=== PATIENT | male | born 1945 | race Caucasian/White ===

== ENCOUNTER 2022-06-28 15:45 | Inpatient (IN) | payer MEDICARE, OTHER ==
[~2022-06-28] VITALS: Ht 172.7 cm; Wt 57.6 kg
[2022-06-28] MEDS ORDERED: MULT-594 PO (16:02)
[2022-06-28] MEDS ORDERED: THIA100T74 PO (16:02)
[2022-06-28] MEDS ORDERED: MELA3TAB41 PO (16:02)
[2022-06-28] MEDS ORDERED: IBUP-1955 PO (16:02)
[2022-06-28] MEDS ORDERED: TRAZ-182 PO (16:02)
[2022-06-28] MEDS ORDERED: FOLI1TAB94 PO (16:02)
--- NOTE | 2022-06-28 16:06 | NUR ---
PT IS IN ROOM #2A. DR KAPADIA EVALUATED THE PT.
[2022-06-28 16:36] LABS: HEMATOCRIT 39.7 % (36.7-47.1); MEAN CORPUSCULAR HEMOGLOBIN 29.7 uug (23.8-33.4); MEAN CORPUSCULAR VOLUME 90.4 fL (73.0-96.2); PLATELET COUNT (AUTO) 385 K/uL (152-348)
[2022-06-28 16:42] LABS: *BILIRUBIN,URIN NEGATIVE (NEGATIVE); *CLARITY,URINE CLEAR (CLEAR); *COLOR,URINE YELLOW (YELLOW); *KETONES,URINE NEGATIVE (NEGATIVE); *UROBILINOGEN,URINE 0.2 E.U./dl (NORMAL); LEUKOCYTE ESTERASE ,URINE NEGATIVE (NEGATIVE); NITRITE, URINE NEGATIVE (NEGATIVE); PH,URINE 5.5 (5.0-8.0); UGLUCOSE NEGATIVE (NEGATIVE)
[2022-06-28 16:43] LABS: *BLOOD, URINE NEGATIVE (NEGATIVE)
[2022-06-28 16:48] LABS: ALANINE AMINOTRANSFERASE 18 U/L (16-63); ALKALINE PHOSPHATASE 92 U/L (50-136); ASPARTATE AMINOTRANSFERASE 7 U/L (15-37); BILIRUBIN,DIRECT < 0.1 mg/dL (0.0-0.2); BILIRUBIN,TOTAL 0.2 mg/dL (0.2-1.0); CARBON DIOXIDE 27 mmol/L (21-32); CHLORIDE 100 mmol/L (98-107); CREATININE 0.8 mg/dL (0.6-1.3); GLUCOSE 105 mg/dL (74-106); POTASSIUM 4.3 mmol/L (3.5-5.1); TOTAL PROTEIN, SERUM 7.1 g/dL (6.4-8.2); UREA NITROGEN, BLOOD 23 mg/dL (7-18)
[2022-06-28 16:50] LABS: *AMPHETAMINE, URINE NEGATIVE (NEGATIVE); *CANNABINOID, URINE NEGATIVE (NEGATIVE); *COCCAINE, URINE NEGATIVE (NEGATIVE); *OPIATE, URINE NEGATIVE (NEGATIVE); *PHENCYCLIDINE SCREEN,URINE NEGATIVE (NEGATIVE)
[2022-06-28 16:56] LABS: ETHANOL < 3 MG/DL (0-0)
--- NOTE | 2022-06-28 17:56 | NUR ---
CRISIS OFFICE RENTAL CLERK RASHAAD WAS CALLED TO EVALUATE THE PT. SAUL IS 1 HOUR.
--- NOTE | 2022-06-28 18:50 | NUR ---
REPORT WAS GIVEN TO NUT SORTER RN.
--- NOTE | 2022-06-28 18:55 | NUR ---
Recieved report from Jaydon NGUYEN.
--- NOTE | 2022-06-28 23:15 | NUR ---
Report given to Marbella RN. Patient given room/bed 141B in MHU.
--- NOTE | 2022-06-28 23:20 | NUR ---
Called [facility] for panel call. Dr. Boyd infection control practitioner.
--- NOTE | 2022-06-29 00:35 | NUR ---
Pt. admitted to MHU rm 141B , under care of Dr. Boyd/Dr. Gentile. Belongs List completed May RN aware of patients arrival.
[2022-06-29 00:45] VITALS: BP 115/61
[2022-06-29] MEDS ORDERED: MAG HYDROX/AL HYDROX/SIMETH 30 ML LIQUID UDC PO PRN (02:00)
[2022-06-29] MEDS ORDERED: MAGNESIUM HYDROXIDE 30 ML LIQUID UDC PO PRN (02:00)
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
[2022-06-29] MEDS: LORAZEPAM 1 MG TABLET PO PRN (06:49)
[2022-06-29 07:30] VITALS: BP 119/57
[2022-06-29] MEDS: FOLIC ACID 1 MG TABLET PO SCH (09:15)
[2022-06-29] MEDS: THIAMINE HCL 100 MG TABLET PO SCH ×2 (09:15→17:33)
[2022-06-29] MEDS: MULTIVITAMINS,THERAPEUTIC TABLET PO SCH (09:15)
[2022-06-29] MEDS: DIVALPROEX 250 MG TABLET.DR PO SCH ×2 (09:44→17:33)
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
[2022-06-29 15:59] VITALS: BP 122/53
--- NOTE | 2022-06-29 17:12 | NUR ---
Patient is demanding, needy, fixated on tea, cooperative with care, redirectable, compliant with medications. A/O X 2 to person, place. Ambulates independently. Self care. Active listening provided. Fall and safety precautions implemented.
[2022-06-29 20:13] VITALS: BP 116/56
[2022-06-29] MEDS: MELATONIN 3 MG TABLET PO SCH (20:48)
--- NOTE | 2022-06-29 20:50 | NUR ---
GPS: Received patient lying in bed. alert and oriented x2. Patient is demanding, needy, compliant with meds. cooperative with care, redirectable, no agitation noted. hs snack given assisted with adl's. Ambulates independently. Self care. Active listening provided. Fall and safety precautions implemented. continue plan of care.
[2022-06-29] MEDS ORDERED: QUETIAPINE FUMARATE 25 MG TABLET PO SCH (21:00)
[2022-06-29] MEDS ORDERED: MELATONIN 3 MG TABLET PO SCH (21:00)
--- NOTE | 2022-06-30 06:29 | NUR ---
NSG: Remain calm and cooperative with meds and care. slept 7.15 hrs through the night. no agitation noted continue plan of care.
[2022-06-30 07:30] VITALS: BP 121/56
[2022-06-30] MEDS: MULTIVITAMINS,THERAPEUTIC TABLET PO SCH (08:33)
[2022-06-30] MEDS: FOLIC ACID 1 MG TABLET PO SCH (08:33)
[2022-06-30] MEDS: THIAMINE HCL 100 MG TABLET PO SCH ×2 (08:33→16:44)
[2022-06-30] MEDS: DIVALPROEX 250 MG TABLET.DR PO SCH ×2 (08:37→16:44)
--- NOTE | 2022-06-30 11:18 | NUR ---
[facility] initial discharge note: Per facesheet, patient currently resides at [address] [place] [address], [facility] [address] ([phone]). Patient states that [place] [address] ([phone]) and plans to be discharged back to [address] [place] [address] ([phone]). [facility] will continue to work with patient and MD to ensure a safe and proper discharge plan.
[2022-06-30 12:12] LABS: CARBON DIOXIDE 28 mmol/L (21-32); CHLORIDE 104 mmol/L (98-107); GLUCOSE 138 mg/dL (74-106); POTASSIUM 4.1 mmol/L (3.5-5.1); UREA NITROGEN, BLOOD 17 mg/dL (7-18)
[2022-06-30 12:13] LABS: BILIRUBIN,TOTAL 0.4 mg/dL (0.2-1.0); CREATININE 0.8 mg/dL (0.6-1.3)
[2022-06-30 12:14] LABS: ALKALINE PHOSPHATASE 80 U/L (50-136); ASPARTATE AMINOTRANSFERASE 6 U/L (15-37)
[2022-06-30 12:15] LABS: ALANINE AMINOTRANSFERASE 21 U/L (16-63); TOTAL PROTEIN, SERUM 6.9 g/dL (6.4-8.2)
[2022-06-30 15:25] VITALS: BP 115/62
--- NOTE | 2022-06-30 17:36 | NUR ---
patient is AAO x4, remains isolative withdrawn with min.interaction with other peers.compliant with medication ,encourage to attend in group activity will continue close monitoring.
[2022-06-30 20:24] VITALS: BP 103/64
[2022-06-30] MEDS: MELATONIN 3 MG TABLET PO SCH (20:31)
[2022-06-30] MEDS: QUETIAPINE FUMARATE 25 MG TABLET PO SCH (20:31)
--- NOTE | 2022-06-30 21:30 | NUR ---
GPS: Received patient lying in bed. alert and oriented x2. patient is ambulatory. compliant with meds. cooperative with care, redirectable, no agitation noted. hs snack given assisted with adl's. Self care. Active listening provided. Fall and safety precautions implemented. continue plan of care.
--- NOTE | 2022-07-01 05:46 | NUR ---
NSG: Remain calm and cooperative with meds and care. no agitation noted. resting in bed comfortably. continue plan of care.
--- NOTE | 2022-07-01 06:23 | NUR ---
GPS: slept 7.45 hrs through the night.
[2022-07-01 07:30] VITALS: BP 113/65
[2022-07-01] MEDS: THIAMINE HCL 100 MG TABLET PO SCH ×2 (08:26→17:08)
[2022-07-01] MEDS: FOLIC ACID 1 MG TABLET PO SCH (08:26)
[2022-07-01] MEDS: MULTIVITAMINS,THERAPEUTIC TABLET PO SCH (08:26)
[2022-07-01] MEDS: DIVALPROEX 250 MG TABLET.DR PO SCH ×3 (08:26→17:08)
--- NOTE | 2022-07-01 14:47 | NUR ---
Patient is very forgetful, keeps asking about the same things every 5 minutes, fixated on coffee and tea, confused, disoriented, disorganized. A/O X 2 to person. Ambulates independently. Patient requires to be redirected. Requires minimal assistance with ADL. Reality orientation provided. Fall and safety precautions implemented.
[2022-07-01 16:00] VITALS: BP 119/58
[2022-07-01 20:00] VITALS: BP 111/53
[2022-07-01] MEDS: MELATONIN 3 MG TABLET PO SCH (20:13)
[2022-07-01] MEDS: QUETIAPINE FUMARATE 25 MG TABLET PO SCH (20:13)
--- NOTE | 2022-07-01 23:00 | NUR ---
GPS: Received patient lying in bed. alert and oriented x2 eyes close.patient is ambulatory. compliant with meds. cooperative with care, redirectable, no agitation noted. hs snack given assisted with adl's. Self care. Active listening provided. Fall and safety precautions implemented. continue plan of care
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
--- NOTE | 2022-07-02 05:49 | NUR ---
NSG: Remain calm and cooperative with meds and care. easily gets agitated when redirect. resting in bed comfortably. continue plan of care.
[2022-07-02] MEDS: LORAZEPAM 1 MG TABLET PO PRN ×3 (06:22→20:10)
--- NOTE | 2022-07-02 06:24 | NUR ---
patient c/o anxiety. ativan 1 mg po given for anxiety.
[2022-07-02 07:30] VITALS: BP 122/54
[2022-07-02] MEDS: FOLIC ACID 1 MG TABLET PO SCH (08:36)
[2022-07-02] MEDS: DIVALPROEX 250 MG TABLET.DR PO SCH ×3 (08:36→16:55)
[2022-07-02] MEDS: MULTIVITAMINS,THERAPEUTIC TABLET PO SCH (08:36)
[2022-07-02] MEDS: THIAMINE HCL 100 MG TABLET PO SCH ×2 (08:36→16:55)
--- NOTE | 2022-07-02 15:46 | NUR ---
received Patient is confused forgetful , needy, fixated on hot tea and sugar, constantly come to nurse station ask same thing again and again , compliant with medications. A/O X 2 to person, place. Ambulates independently. Self care. Active listening provided. Fall and safety precautions implemented.
[2022-07-02 16:00] VITALS: BP 125/65
[2022-07-02] MEDS: MELATONIN 3 MG TABLET PO SCH (20:10)
[2022-07-02 20:17] VITALS: BP 116/62
[2022-07-02] MEDS ORDERED: QUETIAPINE FUMARATE 25 MG TABLET PO SCH (21:00)
[2022-07-02] MEDS: ZOLPIDEM 5 MG TABLET PO PRN (22:51)
[2022-07-03] MEDS: ACETAMINOPHEN 325 MG TABLET PO PRN (01:54)
[2022-07-03] MEDS: LORAZEPAM 1 MG TABLET PO PRN ×2 (01:54→08:50)
[2022-07-03 07:30] VITALS: BP 116/65
[2022-07-03] MEDS: MULTIVITAMINS,THERAPEUTIC TABLET PO SCH (08:50)
[2022-07-03] MEDS: THIAMINE HCL 100 MG TABLET PO SCH ×2 (08:50→17:41)
[2022-07-03] MEDS: FOLIC ACID 1 MG TABLET PO SCH (08:51)
[2022-07-03] MEDS: DIVALPROEX 250 MG TABLET.DR PO SCH (08:51)
[2022-07-03] MEDS: GLUCERNA SHAKE 237 ML CAN PO SCH (13:11)
[2022-07-03] MEDS: PROTEIN SUPPLEMENT (PROSTAT) 30 ML LIQUID PO SCH (13:11)
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
[2022-07-03] MEDS ORDERED: OLANZAPINE 10 MG VIAL IM ONE (13:30)
[2022-07-03 15:39] VITALS: BP 133/59
--- NOTE | 2022-07-03 15:44 | NUR ---
[facility] Conservator Contact: [facility] contacted pt's conservator, Lorelei romero at ([phone]) again and left a voicemail for a call back. [facility] did not receive a call back from the previous voicemail left on Sunday the . [facility] also contacted and left a voicemail for Jessica Almazan the guardian ([phone]) and Ivania ([phone]).
[2022-07-03] MEDS: DIVALPROEX 500 MG TABLET.DR PO SCH (20:33)
[2022-07-03] MEDS: QUETIAPINE FUMARATE 100 MG TABLET PO SCH (20:33)
[2022-07-03] MEDS: MELATONIN 3 MG TABLET PO SCH (20:33)
[2022-07-03] MEDS ORDERED: QUETIAPINE FUMARATE 25 MG TABLET PO SCH (21:00)
[2022-07-03] MEDS ORDERED: DIVALPROEX 250 MG TABLET.DR PO SCH (21:00)
[2022-07-03] MEDS ORDERED: QUETIAPINE FUMARATE 100 MG TABLET PO SCH (21:00)
--- NOTE | 2022-07-04 06:30 | NUR ---
GPS NOTES: Patient slept most of the shift, responsive to name. No distress noted. Compliant with medications. Frequent monitoring and safety strategies in placed.
[2022-07-04 07:30] VITALS: BP 136/66
[2022-07-04] MEDS: DIVALPROEX 500 MG TABLET.DR PO SCH ×2 (09:23→20:13)
[2022-07-04] MEDS: FOLIC ACID 1 MG TABLET PO SCH (09:23)
[2022-07-04] MEDS: MULTIVITAMINS,THERAPEUTIC TABLET PO SCH (09:23)
[2022-07-04] MEDS: THIAMINE HCL 100 MG TABLET PO SCH ×2 (09:23→16:23)
[2022-07-04] MEDS: PROTEIN SUPPLEMENT (PROSTAT) 30 ML LIQUID PO SCH (09:24)
[2022-07-04] MEDS: GLUCERNA SHAKE 237 ML CAN PO SCH (09:24)
--- NOTE | 2022-07-04 11:30 | NUR ---
[facility] Conservator Contact: [facility] contacted pt's conservator, Lorelei romero at ([phone]) again and left a voicemail for a call back. [facility] also contacted and left a voicemail for Jessica Almazan the guardian ([phone]) and left a voicemail for a call back to discuss pt's discharge plan.
--- NOTE | 2022-07-04 15:53 | NUR ---
Patient is disorganized, forgetful, fixated on hot tea and crackers, anxious and combative at times, redirectable. A/O X 2 to person, place. Self care. Pt. is encourage to vent feelings and emotions. Fall and safety precautions implemented.
[2022-07-04 16:55] VITALS: BP 117/53
[2022-07-04 20:06] VITALS: BP 126/64
[2022-07-04] MEDS: ATORVASTATIN 10 MG TABLET PO SCH (20:13)
[2022-07-04] MEDS: QUETIAPINE FUMARATE 100 MG TABLET PO SCH (20:13)
[2022-07-04] MEDS: MELATONIN 3 MG TABLET PO SCH (20:13)
[2022-07-05] MEDS: ZOLPIDEM 5 MG TABLET PO PRN (01:41)
[2022-07-05 07:30] VITALS: BP 136/62
[2022-07-05] MEDS: PROTEIN SUPPLEMENT (PROSTAT) 30 ML LIQUID PO SCH (08:16)
[2022-07-05] MEDS: DIVALPROEX 500 MG TABLET.DR PO SCH ×2 (09:49→20:27)
[2022-07-05] MEDS: THIAMINE HCL 100 MG TABLET PO SCH ×2 (09:49→17:31)
[2022-07-05] MEDS: MULTIVITAMINS,THERAPEUTIC TABLET PO SCH (09:49)
[2022-07-05] MEDS: GLUCERNA SHAKE 237 ML CAN PO SCH (09:49)
[2022-07-05] MEDS: FOLIC ACID 1 MG TABLET PO SCH (09:49)
[2022-07-05] MEDS: LORAZEPAM 1 MG TABLET PO PRN (17:31)
--- NOTE | 2022-07-05 17:59 | NUR ---
Patient was compliant and less intrusive/needy during shift. Can be needy and attention seeking. Set boundaries.
[2022-07-05 18:00] VITALS: BP 100/44
[2022-07-05] MEDS: QUETIAPINE FUMARATE 100 MG TABLET PO SCH (20:26)
[2022-07-05] MEDS: MELATONIN 3 MG TABLET PO SCH (20:27)
[2022-07-05] MEDS: ATORVASTATIN 10 MG TABLET PO SCH (20:27)
--- NOTE | 2022-07-05 21:00 | NUR ---
RECEIVED PATIENT IN THE DAYROOM. HE IS NOTED A/O X 1 TO 2. HE IS LABILE AND EASILY IRRITABLE. HE IS HARD TO REDIRECT. HE IS A POOR HISTORIAN. POOR INSIGHT AND JUDGMENT IS NOTED TO THE REASON FOR HIS ADMISSION TO MHU. HE IS ABLE TO COMPLY WITH HIS MEDICATION REGIMENT DIET AND CARE. HE IS REASSURED FOR HIS SAFETY. HIS V/S ARE STABLE, HE IS IN NO DISTRESS. PO FLUIDS AND SNACKS WERE GIVEN. WILL CONTINUE TO MONITOR.
[2022-07-05 21:08] VITALS: BP 118/50
--- NOTE | 2022-07-06 00:30 | NUR ---
PATIENT IS NOTED RESTLESS, UNABLE TO FALL ASLEEP. HE WAS OFFERED AMBIEN 5MG PO PRN FOR INSOMNIA BUT HE REFUSED. WILL CONTINUE TO MONITOR.
--- NOTE | 2022-07-06 07:18 | NUR ---
Patient slept for approx 3hrs through the night. He refused Ambien. will continue to monitor
[2022-07-06 07:30] VITALS: BP 110/47
[2022-07-06] MEDS: MULTIVITAMINS,THERAPEUTIC TABLET PO SCH (08:42)
[2022-07-06] MEDS: FOLIC ACID 1 MG TABLET PO SCH (08:42)
[2022-07-06] MEDS: DIVALPROEX 500 MG TABLET.DR PO SCH ×2 (08:42→20:36)
[2022-07-06] MEDS: PROTEIN SUPPLEMENT (PROSTAT) 30 ML LIQUID PO SCH (08:43)
[2022-07-06] MEDS: THIAMINE HCL 100 MG TABLET PO SCH ×2 (08:43→16:55)
[2022-07-06] MEDS: GLUCERNA SHAKE 237 ML CAN PO SCH (08:43)
--- NOTE | 2022-07-06 16:04 | NUR ---
Patient is demanding, needy, impatient, fixated on snacks and tea, confused and disoriented at times, compliant with medications. A/O X 2 to person. Requires minimal assistance with ADL. Fall and safety precautions implemented.
[2022-07-06 16:28] VITALS: BP 123/75
[2022-07-06 20:27] VITALS: BP 117/50
[2022-07-06] MEDS: MELATONIN 3 MG TABLET PO SCH (20:36)
[2022-07-06] MEDS: QUETIAPINE FUMARATE 100 MG TABLET PO SCH (20:36)
[2022-07-06] MEDS: ATORVASTATIN 10 MG TABLET PO SCH (20:36)
--- NOTE | 2022-07-06 21:00 | NUR ---
RECEIVED PATIENT IN HIS ROOM SLEEPING BUT EASILY AROUSABLE. HE IS NOTED A/O X 2. HE IS A POOR HISTORIAN. POOR EYE CONTACT. HE IS NOTED EASILY IRRITABLE. HE IS ABLE TO COMPLY WITH HIS MEDICATION REGIMENT DIET AND CARE. HE IS REASSURED FOR HIS SAFETY. SAFETY AND FALL PRECAUTIONS ARE IN PLACE. HIS V/S ARE STABLE, HE IS IN NO DISTRESS. PO FLUIDS AND SNACKS WERE GIVEN. WILL CONTINUE TO MONITOR.
[2022-07-07] MEDS: ACETAMINOPHEN 325 MG TABLET PO PRN ×2 (00:11→23:05)
[2022-07-07 07:30] VITALS: BP 118/54
[2022-07-07] MEDS: THIAMINE HCL 100 MG TABLET PO SCH ×2 (08:30→16:57)
[2022-07-07] MEDS: MULTIVITAMINS,THERAPEUTIC TABLET PO SCH (08:30)
[2022-07-07] MEDS: DIVALPROEX 500 MG TABLET.DR PO SCH ×2 (08:30→21:11)
[2022-07-07] MEDS: FOLIC ACID 1 MG TABLET PO SCH (08:30)
[2022-07-07] MEDS: PROTEIN SUPPLEMENT (PROSTAT) 30 ML LIQUID PO SCH (09:12)
[2022-07-07] MEDS: GLUCERNA SHAKE 237 ML CAN PO SCH (09:12)
--- NOTE | 2022-07-07 09:34 | NUR ---
[facility] Conservator Contact: [facility] contacted pt's conservator, Lorelei romero at ([phone]) and left a voicemail for a call back to discuss pt's discharge plan and update. [facility] informed Lorelei plata he voicemail to please call back at her earliest convenience as there are updates for the pt. [facility] also contacted and left a voicemail for Jessiac Almazan the guardian ([phone]) and left the same voicemail.
--- NOTE | 2022-07-07 09:57 | NUR ---
Conservator Contact Update: [facility] received a call from Jessica Almazan ([phone]) who stated she and Lorelei are both the pt's conservator. Jessica informed [facility] that she will send the conservatorship paperwork as well as the detain and treat to today. Jessica is aware of pt's discharge to return to [place] [address] ([phone]) on Sunday. She is aware and agreeable.
--- NOTE | 2022-07-07 14:36 | NUR ---
Patient is compliant with medications, cooperative with nursing care, needy, demanding, fixated on snacks, irritable at times. Requires minimal assistance with ADL. A/O X 2 to person, place. Reality orientation provided. Fall and safety precautions implemented.
[2022-07-07 16:52] VITALS: BP 120/66
[2022-07-07 19:52] VITALS: BP 126/60
--- NOTE | 2022-07-07 21:00 | NUR ---
Received patient in his room in bed sleeping but easily arousable. patient is A/O x 2. he is able to make his needs known and able to verbalized his feelings. he is calm and pleasant upon approached. no aggressive or combative bx noted at this time. patient is able to ambulate with steady gait and able to maintain some ADLs. However, he requires constant redirections. His V/S are stable, he is in no distress, patient was given PO fluids and snacks. Safety and fall precautions are in place. he is reassured for his safety. will continue to monitor,
[2022-07-07] MEDS: QUETIAPINE FUMARATE 100 MG TABLET PO SCH (21:10)
[2022-07-07] MEDS: MELATONIN 3 MG TABLET PO SCH (21:11)
[2022-07-07] MEDS: ATORVASTATIN 10 MG TABLET PO SCH (21:11)
--- NOTE | 2022-07-08 07:02 | NUR ---
Patient slept for approx 3.30 hrs through the night. will continue to monitor.
[2022-07-08 07:48] VITALS: BP 136/61
[2022-07-08] MEDS: MULTIVITAMINS,THERAPEUTIC TABLET PO SCH (08:29)
[2022-07-08] MEDS: PROTEIN SUPPLEMENT (PROSTAT) 30 ML LIQUID PO SCH (08:29)
[2022-07-08] MEDS: DIVALPROEX 500 MG TABLET.DR PO SCH ×2 (08:29→20:15)
[2022-07-08] MEDS: FOLIC ACID 1 MG TABLET PO SCH (08:29)
[2022-07-08] MEDS: THIAMINE HCL 100 MG TABLET PO SCH ×2 (08:29→17:01)
[2022-07-08] MEDS: GLUCERNA SHAKE 237 ML CAN PO SCH (08:30)
[2022-07-08] MEDS: ACETAMINOPHEN 325 MG TABLET PO PRN ×2 (08:51→23:13)
--- NOTE | 2022-07-08 08:54 | NUR ---
Tylenol 650 mg is given at 08:51 for back pain, will be monitored for effectiveness.
--- NOTE | 2022-07-08 14:14 | NUR ---
Patient is confused at times, demanding, participating in group activities, sociable, fixated on snacks, disorganized, forgetful. A/O X 2 to person, place. Patient is compliant with medications. Requires more than minimal assistance with ADL. Pt. is encourage to vent feelings and emotions. Fall and safety precautions implemented.
[2022-07-08 16:25] VITALS: BP 113/52
[2022-07-08 19:59] VITALS: BP 122/51
[2022-07-08] MEDS: LORAZEPAM 1 MG TABLET PO PRN (20:15)
[2022-07-08] MEDS: ATORVASTATIN 10 MG TABLET PO SCH (20:16)
[2022-07-08] MEDS: QUETIAPINE FUMARATE 100 MG TABLET PO SCH (20:16)
[2022-07-08] MEDS: MELATONIN 3 MG TABLET PO SCH (20:16)
[2022-07-08] MEDS: ZOLPIDEM 5 MG TABLET PO PRN (23:07)
[2022-07-09 07:40] VITALS: BP 131/64
[2022-07-09] MEDS: DIVALPROEX 500 MG TABLET.DR PO SCH ×2 (08:35→21:14)
[2022-07-09] MEDS: MULTIVITAMINS,THERAPEUTIC TABLET PO SCH (08:36)
[2022-07-09] MEDS: THIAMINE HCL 100 MG TABLET PO SCH ×2 (08:36→17:12)
[2022-07-09] MEDS: FOLIC ACID 1 MG TABLET PO SCH (08:36)
[2022-07-09] MEDS: LORAZEPAM 1 MG TABLET PO PRN (08:36)
--- NOTE | 2022-07-09 15:50 | NUR ---
patient is AAO x 1 to himself only , remains isolative withdrawn with min.interaction with other peers.compliant with medication ,stay in his room most of time ,encourage to attend in group activity will continue close monitoring.
[2022-07-09 16:07] VITALS: BP 128/65
[2022-07-09 19:44] VITALS: BP 118/62
--- NOTE | 2022-07-09 20:30 | NUR ---
Received patient in his room sitting in his bed. patient is A/O x 2. he is noted easily irritable and forgetful. no aggressive or combative bx noted at this time. he requires constant redirections. His V/S are stable, he is in no distress, patient was given PO fluids and snacks. Safety and fall precautions are in place. he is reassured for his safety. will continue to monitor,
[2022-07-09] MEDS: MELATONIN 3 MG TABLET PO SCH (21:11)
[2022-07-09] MEDS: MIRTAZAPINE 15 MG TABLET PO SCH (21:11)
[2022-07-09] MEDS: QUETIAPINE FUMARATE 100 MG TABLET PO SCH (21:11)
[2022-07-09] MEDS: ATORVASTATIN 10 MG TABLET PO SCH (21:11)
--- NOTE | 2022-07-09 21:30 | NUR ---
Patient noted yelling, he stated, "I want my shoes". "i want to eat". he was noted with disorganized speech. All his needs were met. he required redirection and reality checks. patient was given earlier new medication remeron 7.5mg PO QHS. will continue to monitor.
--- NOTE | 2022-07-09 23:00 | NUR ---
Patient noted unsteady on his feet with disorganized speech and drowsy. He is noted easily irritable when he was helped to the bathroom and back to bed. Safety and fall precautions are in place. bed at lowest position with wheels locked, bed alarm on and frequent rounds.
--- NOTE | 2022-07-10 06:59 | NUR ---
PATIENT SLEPT FOR APPROX 4HRS THROUGH THE NIGHT. HE IS NOTED LESS IRRITABLE. ABLE TO ACCEPT CARE. HE IS CURRENTLY SLEEPING COMFORTABLE IN HIS BED. WILL CONTINUE TO MONITOR.
[2022-07-10 07:28] VITALS: BP 100/53
[2022-07-10] MEDS: THIAMINE HCL 100 MG TABLET PO SCH ×2 (08:25→17:15)
[2022-07-10] MEDS: FOLIC ACID 1 MG TABLET PO SCH (08:25)
[2022-07-10] MEDS: MULTIVITAMINS,THERAPEUTIC TABLET PO SCH (08:25)
[2022-07-10] MEDS: DIVALPROEX 500 MG TABLET.DR PO SCH ×2 (08:25→20:45)
--- NOTE | 2022-07-10 14:54 | NUR ---
patient is AAO x 1 to himself only , remains isolative withdrawn with min.interaction with other peers.compliant with medication ,stay in his room most of time ,patient is very confused with unsteady gait bed alarm is on and bed in low position for fall precaution .no prn medication given ,encourage to attend in group activity will continue close monitoring.
--- NOTE | 2022-07-10 15:32 | NUR ---
[facility] Conservator contact: [facility] also contacted and left a voicemail for Jessica Almazan ([phone]) and informed her that the pt's discharge is postponed for tomorrow to [place] [address] ([phone]) on 07/11/22 via ambulance.
[2022-07-10 16:13] VITALS: BP 117/69
[2022-07-10 19:46] VITALS: BP 112/60
[2022-07-10] MEDS: ATORVASTATIN 10 MG TABLET PO SCH (20:45)
[2022-07-10] MEDS: MIRTAZAPINE 15 MG TABLET PO SCH (20:45)
[2022-07-10] MEDS: QUETIAPINE FUMARATE 100 MG TABLET PO SCH (20:45)
[2022-07-10] MEDS: MELATONIN 3 MG TABLET PO SCH (20:47)
--- NOTE | 2022-07-11 04:56 | NUR ---
Patient is restless, sleeping on and off, frequenting the bathroom. Episode of yelling to seek attention. Med compliant. Needs assistance to restroom as he is unsteady after the medications. He is forgetful and is needy. Set limits and boundaries. Frequent monitoring observed.
[2022-07-11 07:35] VITALS: BP 131/63
--- NOTE | 2022-07-11 09:12 | NUR ---
[facility] Discharge Note: Pt will be discharged to [place] [address] ([phone]) via Ambulance transportation at 11AM. [facility] spoke with admin coordinator, Irene ([phone]) at the facility who states they are ready to accept the patient today. Pt is aware and agreeable with discharge plan. Pts conservator, Jessica Almazan ([phone]) is aware and agreeable with the discharge plan. Pt is alert and oriented x2, is unable to plan for self-care at this time. However, pt is willing to accept care at returning SNF. Pt denies any suicidal or homicidal ideation. Pt will follow-up at the facility with Psychiatrist, Dr. Gentile ([phone]) and Public Health Registrar, Dr. Manzano. Pt presents with calm mood and congruent affect. PHARMACY: [facility] ([phone]) [address] [facility] [address] [facility] [address].
[2022-07-11] MEDS: MULTIVITAMINS,THERAPEUTIC TABLET PO SCH (09:15)
[2022-07-11] MEDS: FOLIC ACID 1 MG TABLET PO SCH (09:15)
[2022-07-11] MEDS: DIVALPROEX 500 MG TABLET.DR PO SCH (09:15)
[2022-07-11] MEDS: THIAMINE HCL 100 MG TABLET PO SCH (09:15)
[2022-07-11] MEDS: LORAZEPAM 1 MG TABLET PO PRN (09:19)
[2022-07-11 16:02] VITALS: BP 118/59
--- NOTE | 2022-07-11 16:08 | NUR ---
Received orders from psychiatrsandeep Gentile to discharge patient to [facility] at [address] [place] [id number]. Patient was taken and being transported via [facility] at 1610 hours. Nursing sales supervisor Doreen at [facility] was made aware patient's discharge and is waiting patient's arrival. Patient was AOx3, no s/s of respiratory distress, no s/s nor compliants of pain. Denied any feelings of dizziness, nor feelings of nausea. VS WNL. P/L 0/10. Patient was compliant throughout entire DC process. No confusion noted. Patient denied having suicidal nor homicidal ideations, and communicating appropriately. Safety precautions undertaken via ambulatroy personel. Pt will follow up with Psychiatrist Dr. Gentile and Animal Geneticist Dr. Manzano at the facility.
== END 2022-07-11 16:10 | DRG 885 ==
LOC: ER 15:45 → GPS 23:20
PROVIDERS: ADMIT Psychiatry & Neurology Psychiatry; ATTEND Internal Medicine
DX: F29 Unspecified psychosis not due to a substance or known physiological condition (principal); F03.918 Unspecified dementia, unspecified severity, with other behavioral disturbance; F31.2 Bipolar disorder, current episode manic severe with psychotic features; E78.5 Hyperlipidemia, unspecified; I10 Essential (primary) hypertension; Z20.822 Contact with and (suspected) exposure to COVID-19; Z86.16 Personal history of COVID-19; M19.90 Unspecified osteoarthritis, unspecified site; D72.829 Elevated white blood cell count, unspecified; M48.02 Spinal stenosis, cervical region
CPT/HCPCS: 36415; 71045; 80164; 85025; 93005; A4663; A6209; G0480; J2358; J3490